=== PATIENT | female | born 1980 | race American Indian/Alaskan Native ===

== ENCOUNTER 2019-11-03 13:48 | Emergency (ER) | payer OTHER ==
[2019-11-03 13:56] VITALS: BP 148/83; PULSE 103; TEMP 99.1; BMI 33.0
--- NOTE | 2019-11-03 13:56 | PDOC ---
Rapid Medical Evaluation Time Seen by Provider: 11/03/19 13:52 Medical Evaluation: Allergies Allergy/AdvReac Type Severity Reaction Status Date / Time No Known Allergies Allergy Verified 05/01/19 10:36 11/03/19 13:53 I have performed a brief in-person evaluation of this patient. CC: sent by PMD for left inguinal mass- r/o abscess. PMHx- NIDDM PE: firm palpable mass present to left inguinal area Orders: deferred Patient to proceed to ED for further evaluation. 11/03/19 13:55 Discharge Disposition - Diagnosis Groin mass in female - Referrals - Patient Instructions - Post Discharge Activity
--- NOTE | 2019-11-03 14:24 | PDOC ---
History of Present Illness - General Chief Complaint: Abscess Boil Stated Complaint: SENT BY PCP Time Seen by Provider: 11/03/19 13:52 - History of Present Illness Initial Comments: 11/03/19 14:55 39 F with hx of prior Csection, DM presented to the ED from her PCP for left groin mass. It happened acutely 2 days ago. Mass was painful, dull in nature, no radiating, no discharge, no other associated symptoms. Denies abdominal pain, F/C/N/V/D, constipation, dysuria, increase frequency. She endorses tylenol help with the pain. She never has this happened to her before. Patient denies IV drug use, hx of STI, other abdominal surgery beside done 15 months ago in [facility]. PSH: PMH: DM SS: denies smoking, alcohol, drug Allergy: none PCP: dr. geller. CELMENCIA GENERAL/CONSTITUTIONAL: No fever or chills. No weakness. HEAD, EYES, EARS, NOSE AND THROAT: No change in vision. No ear pain or discharge. No sore throat. CARDIOVASCULAR: No chest pain or shortness of breath RESPIRATORY: No cough, wheezing, or hemoptysis. GASTROINTESTINAL: No nausea, vomiting, diarrhea or constipation. GENITOURINARY: No dysuria, frequency, or change in urination. +left groin mass/pain. MUSCULOSKELETAL: No joint or muscle swelling or pain. No neck or back pain. SKIN: No rash NEUROLOGIC: No headache, vertigo, loss of consciousness, or change in strength/sensation. ENDOCRINE: No increased thirst. No abnormal weight change HEMATOLOGIC/LYMPHATIC: No anemia, easy bleeding, or history of blood clots. ALLERGIC/IMMUNOLOGIC: No hives or skin allergy. PE: HR 103. GENERAL: Awake, alert, and fully oriented, in no acute distress, HEAD: No signs of trauma, normocephalic, atraumatic EYES: PERRLA, EOMI, sclera anicteric, conjunctiva clear ENT: Auricles normal inspection, hearing grossly normal, nares patent, oropharynx clear without exudates. Moist mucosa NECK: Normal ROM, supple, no lymphadenopathy, JVD, or masses LUNGS: No distress, speaks full sentences, clear to auscultation bilaterally HEART: Regular rate and rhythm, normal S1 and S2, no murmurs, rubs or gallops, peripheral pulses normal and equal bilaterally. ABDOMEN: Soft, nontender, normoactive bowel sounds. No guarding, no rebound. Truncal obesity. : left groin mass, tender, erythema, warm, solid, no fluctulant. Can't reduce back up. EXTREMITIES : Normal inspection, Normal range of motion, no edema. No clubbing or cyanosis. NEUROLOGICAL: Cranial nerves II through XII grossly intact. Normal speech, normal gait, no focal sensorimotor deficits SKIN: Warm, Dry, normal turgor, no rashes or lesions noted 11/03/19 18:36 Past History - Medical History Allergies/Adverse Reactions: Allergies Allergy/AdvReac Type Severity Reaction Status Date / Time No Known Allergies Allergy Verified 11/03/19 13:53 Home Medications: Ambulatory Orders Miscellaneous Medical Supply [Glucometer Device] 1 each TD ASDIR #1 kit 05/01/19 Multivitamin,Therapeutic [Thera] 1 each PO DAILY #30 tablet 09/08/19 Alcohol Antiseptic Pads [Alcohol Prep Pad] 1 each TP BID #1 box 11/03/19 Blood Sugar Diagnostic [Test Strips] 1 each MC BID #1 box 11/03/19 Clindamycin [Cleocin -] 300 mg PO TID #21 capsule 11/03/19 Docusate Sodium [Colace -] 1 - 2 mg PO HS #60 capsule 11/03/19 Lancets 1 each MC BID #1 box 11/03/19 Metformin HCl [Glucophage] 1 tab PO BIDAC #60 tablet 11/03/19 Psyllium [Metamucil (Sugar-Free) -] 1 scoop PO DAILY #1 bottle 11/03/19 Anemia: No Asthma: No Cancer: No Cardiac Disorders: No CVA: No COPD: No CHF: No Dementia: No Diabetes: Yes GI Disorders: No Disorders: No HTN: No Hypercholesterolemia: No Liver Disease: No Seizures: No Thyroid Disease: No - Reproductive History Is Patient Now?: No - Psycho-Social/Smoking History Smoking History: Never smoked - Substance Abuse Hx (Audit-C & DAST Scrn) How often the patient has a drink containing alcohol: Never Score: In Men: 4 or > Positive; In Women: 3 or > Positive: 0 Screen Result (Pos requires Nsg. Audit-10AR): Negative In the last yr the pt used illegal drug/Rx for NonMed reason: No Score: Yes response is considered Positive: 0 Screen Result (Positive result requires Nsg. DAST-10): Negative *Physical Exam - Vital Signs Last Vital Signs Temp Pulse Resp BP Pulse Ox 99.1 F 103 H 20 148/83 100 11/03/19 13:54 11/03/19 13:54 11/03/19 13:54 11/03/19 13:54 11/03/19 13:54 Medical Decision Making - Medical Decision Making 11/03/19 15:02 Plan: Ultrasound: to see if it is abces or bowel. 11/03/19 15:20 Patient wanted to AMA because she has a 15 month old kid. She understands her condition and will promise to return tomorrow morning. Prescription for clindamycin for 7 days is sent. Patient promised to come back tomorrow morning. Discharge - Discharge Information Problems reviewed: Yes Clinical Impression/Diagnosis: Groin mass in female Condition: Good Disposition: AGAINST MEDICAL ADVICE - Additional Discharge Information Prescriptions: Clindamycin [Cleocin -] 300 mg PO TID #21 capsule - Follow up/Referral Referrals: Nini Carpenter, MOTION PICTURE PROJECTIONIST [Primary Care Provider] - - Patient Discharge Instructions Patient Printed Discharge Instructions: DI for Groin Hernia Additional Instructions: AMA It is recommended that you be stayed in the hospital for ultrasound of the mass. The risks of leaving the hospital without complete evaluation for the groin mass is : strangulated hernias, severe infection, severe vomiting, severe pain. These risks have been discussed with your for > 30min. You express understanding of these risks and still desire to leave the hospital against medical advice. Please come back to the ED if you experienced worsening pain, severe nausea, vomiting and if the mass is getting bigger and more painful. We sent you 7 days of antibiotics, already sent to the preferred pharmacy. Please come back tomorrow as we discussed. - Post Discharge Activity
[2019-11-03] MEDS ORDERED: ACETAMINOPHEN 325 MG TABLET (FP) PO ONE (14:46)
--- NOTE | 2019-11-03 15:18 | PDOC ---
Attending Attestation - Resident Resident Name: Pascual Serra - ED Attending Attestation I have performed the following: I have examined & evaluated the patient, The case was reviewed & discussed with the resident, I agree w/resident's findings & plan, Exceptions are as noted - HPI HPI: 11/03/19 15:17 39 past medical history significant for diabetes presents with infection to left groin mass is painful x2 days indurated no drainage no fever no chills no spreading currently breast-feeding [id number] - Physicial Exam PE: 11/03/19 15:17 Vitals: Triage Vital signs reviewed General Appearance: No acute distress, well nourished well developed, Head: Atraumatic, Extremities: Full range of motion to all extremities, no cyanosis, clubbing, or edema Skin: 4 x 4 indurated area of cellulitis to left inguinal crease no fluctuance no drainage likely early abscess not amenable to drainage at this time Psych: Normal mood, normal affect - Medical Decision Making 11/03/19 15:18 Early abscess on examination not amenable to incision and drainage Patient needs to leave the hospital to attend to her [id number], will AMA however patient recommended to start clindamycin perform warm compresses twice a day and to return to emergency department later today or tomorrow when able Findings, the need for follow-up and strict return instructions discussed with patient. Discharge - Discharge Information Problems reviewed: Yes Clinical Impression/Diagnosis: Groin mass in female Condition: Good Disposition: AGAINST MEDICAL ADVICE - Additional Discharge Information Prescriptions: Clindamycin [Cleocin -] 300 mg PO TID #21 capsule - Follow up/Referral Referrals: Nini Carpenter, MOLDING AND TRIM INSTALLER [Primary Care Provider] - - Patient Discharge Instructions Patient Printed Discharge Instructions: DI for Groin Hernia Additional Instructions: AMA It is recommended that you be stayed in the hospital for ultrasound of the mass. The risks of leaving the hospital without complete evaluation for the groin mass is : strangulated hernias, severe infection, severe vomiting, severe pain. These risks have been discussed with your for > 30min. You express understanding of these risks and still desire to leave the hospital against medical advice. Please come back to the ED if you experienced worsening pain, severe nausea, vomiting and if the mass is getting bigger and more painful. We sent you 7 days of antibiotics, already sent to the preferred pharmacy. Please come back tomorrow as we discussed. - Post Discharge Activity
== END 2019-11-03 15:28 | disposition left against medical advice (07) ==
LOC: JER 13:48
DX: R19.07 Generalized intra-abdominal and pelvic swelling, mass and lump (principal)
CPT/HCPCS: 99283-25

== ENCOUNTER 2019-11-05 12:08 | Emergency (ER) | payer OTHER ==
[2019-11-05 12:15] VITALS: BP 133/86; PULSE 99; TEMP 97.8; BMI 15.3
--- NOTE | 2019-11-05 13:35 | PDOC ---
History of Present Illness <EdilsonrinaGabino - Last Filed: 11/05/19 16:21> - General History Source: Patient Exam Limitations: No Limitations <MaribelCarol meadowsecca - Last Filed: 11/05/19 16:48> - General Chief Complaint: Pain Stated Complaint: PAIN Time Seen by Provider: 11/05/19 12:22 Past History <EdilsonrinaGabino - Last Filed: 11/05/19 16:21> - Travel History Traveled outside of the country in the last 30 days: No Close contact w/someone who was outside of country & ill: No - Medical History Anemia: No Asthma: No Cancer: No Cardiac Disorders: No CVA: No COPD: No CHF: No Dementia: No Diabetes: Yes GI Disorders: No Disorders: No HTN: No Hypercholesterolemia: No Liver Disease: No Seizures: No Thyroid Disease: No - Reproductive History Is Patient Now?: No - Immunization History Immunization Up to Date: No - Psycho-Social/Smoking History Smoking History: Never smoked - Substance Abuse Hx (Audit-C & DAST Scrn) How often the patient has a drink containing alcohol: Never Score: In Men: 4 or > Positive; In Women: 3 or > Positive: 0 Screen Result (Pos requires Nsg. Audit-10AR): Negative <MaribeldoriStella - Last Filed: 11/05/19 16:48> - Medical History Allergies/Adverse Reactions: Allergies Allergy/AdvReac Type Severity Reaction Status Date / Time No Known Allergies Allergy Verified 11/03/19 13:53 Home Medications: Ambulatory Orders Metformin HCl [Glucophage] 1 tab PO BIDAC #60 tablet 11/03/19 Review of Systems - Review of Systems Able to Perform ROS?: Yes Comments:: 11/05/19 13:29 CONSTITUTIONAL: Absent: fever, chills, diaphoresis, generalized weakness, malaise, loss of appetite HEENT: Absent: rhinorrhea, nasal congestion, throat pain, throat swelling, difficulty swallowing, mouth swelling, ear pain, eye pain, visual Changes CARDIOVASCULAR: Absent: chest pain, loss of consciousness, palpitations, irregular heart rate, peripheral edema RESPIRATORY: Absent: cough, shortness of breath, dyspnea with exertion, orthopnea, wheezing, stridor, hemoptysis GASTROINTESTINAL: Absent: abdominal pain, abdominal distension, nausea, vomiting, diarrhea, constipation, melena, hematochezia GENITOURINARY: Absent: dysuria, frequency, urgency, hesitancy, hematuria, flank pain, genital pain MUSCULOSKELETAL: Present: L inguinal region pain. Absent: myalgia, arthralgia, joint swelling SKIN: Absent: rash, itching, pallor HEMATOLOGIC/IMMUNOLOGIC: Absent: easy bleeding, easy bruising, lymphadenopathy, frequent infections ENDOCRINE: Absent: unexplained weight gain, unexplained weight loss, heat intolerance, cold intolerance NEUROLOGIC: Absent: headache, focal weakness or paresthesias, dizziness, unsteady gait, seizure, mental status changes, bladder or bowel incontinence PSYCHIATRIC: Absent: anxiety, depression, suicidal or homicidal ideation, hallucinations. Is the patient limited [place]alan proficient: No <Stella Walker - Last Filed: 11/05/19 16:48> *Physical Exam - Vital Signs Last Vital Signs Temp Pulse Resp BP Pulse Ox 97.8 F 99 H 17 133/86 99 11/05/19 12:11 11/05/19 12:11 11/05/19 12:11 11/05/19 12:11 11/05/19 12:11 <Gabino Villareal - Last Filed: 11/05/19 16:21> - Vital Signs Last Vital Signs Temp Pulse Resp BP Pulse Ox 97.8 F 99 H 17 133/86 99 11/05/19 12:11 11/05/19 12:11 11/05/19 12:11 11/05/19 12:11 11/05/19 12:11 - Physical Exam 11/05/19 13:30 GENERAL: Well developed, well nourished. Awake and alert. No acute distress. HEENT: Normocephalic, atraumatic. PERRLA, EOMI. No conjunctival pallor. Sclera are non- icteric. Moist mucous membranes. Oropharynx is clear. NECK: Supple. Full ROM. No JVD. Carotid pulses 2+ and symmetric, without bruits. No thyromegaly. No lymphadenopathy. CARDIOVASCULAR: Regular rate and rhythm. No murmurs, rubs, or gallops. Distal pulses are 2+ and symmetric. PULMONARY: No evidence of respiratory distress. Lungs clear to auscultation bilaterally. No wheezing, rales or rhonchi. ABDOMINAL: Soft. Non-tender. Non-distended. No rebound or guarding. No organomegaly. Normoactive bowel sounds. MUSCULOSKELETAL Normal range of motion at all joints. No bony deformities or tenderness. No CVA tenderness. EXTREMITIES: No cyanosis. No clubbing. No edema. No calf tenderness. SKIN: 4x3cm area of induration and fluctuance to the left inguinal region as well as associated edema. Warm and dry. Normal capillary refill. No rashes. No jaundice. NEUROLOGICAL: Alert, awake, appropriate. Cranial nerves 2-12 intact. No deficits to light touch and temperature in face, upper extremities and lower extremities. No motor deficits in the in face, upper extremities and lower extremities. Normoreflexic in the upper and lower extremities. Normal speech. Toes are down-going bilaterally. Gait is normal without ataxia. PSYCHIATRIC: Cooperative. Good eye contact. Appropriate mood and affect. <Stella Walker - Last Filed: 11/05/19 16:48> Procedures - Incision and Drainage I&D Site: Right: Leg Betadine cleansed: Yes Anesthesia: 1% Lidocaine Volume(ml): 3 Blade Size: 10 Attempts: 1 Plain Packing: No Complications: none Dressing: Yes (4x4 gauze) <Gabino Villareal - Last Filed: 11/05/19 16:21> ED Treatment Course - Medications Given in the ED: ED Medications Discontinued Medications Generic Name Dose Route Start Last Admin Trade Name Freq PRN Reason Stop Dose Admin Lidocaine HCl 10 ml 11/05/19 14:09 11/05/19 14:53 Xylocaine 1% SQ 11/05/19 14:10 10 ml ONCE ONE Administration <Gabino Villareal - Last Filed: 11/05/19 16:21> Medical Decision Making - Medical Decision Making 11/05/19 13: The patient is a 39-year-old female past medical history of [id number] diabetes, presents to the ER for left inguinal pain. She was seen by her PCP and told to come to the ER for drainage of an abscess. She was seen in our ER 2 days ago and had to leave to take care of her child. They had ordered an ultrasound for her at that time to rule out hernia versus abscess. Patient currently complains of intermittent pain to the left groin. She is taking the clindamycin that was prescribed to her at discharge as directed. Denies fevers, chills, dysuria, hematuria, abdominal pain, nausea and vomiting. A/P: Left inguinal pain. On exam patient has a 4 cm x 3 cm fluctuance to the left groin. There is surrounding induration and edema. Pocus skin/soft tissue ordered Likely needs I&D at this time. We will wait for ultrasound and reevaluate. 11/05/19 16:45 Ultrasound shows abscess without bowel I&D performed by Dr. Villareal PGY1, wound culture collected Advised pt to continue abx and follow up in two days for would check Discharge home with return precautions I discussed the physical exam findings, ancillary test results and final diagnoses with the patient. I answered all of the patient's questions. The patient was satisfied with the care received and felt comfortable with the discharge plan and treatment plan. The Patient agrees to follow up with the primary care physician/specialist within 24-72 hours. Return precautions were given. <Stella Walker - Last Filed: 11/05/19 16:48> Discharge <Gabino Villareal - Last Filed: 11/05/19 16:21> - Discharge Information Problems reviewed: Yes - Admission No <Stella Walker - Last Filed: 11/05/19 16:48> - Discharge Information Clinical Impression/Diagnosis: Abscess Condition: Stable Disposition: HOME - Follow up/Referral Referrals: Nini Carpenter QUALITY ASSURANCE SUPERVISOR [Primary Care Provider] - - Patient Discharge Instructions Patient Printed Discharge Instructions: DI for Skin Abscess Additional Instructions: You have an abscess. This is a skin infection. It was drained today. Please continue the clindamycin as directed Please avoid shaving the skin around the area of redness. Do not soak the area, you may shower as normal though. You may take Tylenol as needed for pain. Please return in two days for a wound check. Return to the emergency department if you have worsening redness, fevers, increasing pain, or have any changes in your symptoms. - Post Discharge Activity
[2019-11-05] MEDS ORDERED: LIDOCAINE HCL 1%, 10 MG/ML (50 mL VIAL) SQ ONE (14:09)
[2019-11-05] MEDS ORDERED: LIDOCAINE HCL 1%, 10 MG/ML (20ML VIAL) ONE ×2 (14:12→14:51)
== END 2019-11-05 16:48 | disposition home or self-care (01) ==
LOC: JER 12:08
DX: L02.214 Cutaneous abscess of groin (principal)
CPT/HCPCS: 76999; 87070; 87077; 87205; 99283-25

== ENCOUNTER 2019-11-07 13:47 | Emergency (ER) | payer OTHER ==
[2019-11-07 13:50] VITALS: BP 130/81; PULSE 78; TEMP 97.8; BMI 27.3
--- NOTE | 2019-11-07 14:24 | PDOC ---
Suture Removal/Wound Check HPI - History of Present Illness Chief Complaint: Revisit,Wound Recheck Stated Complaint: WOUND CHECK Time Seen by Provider: 11/07/19 13:50 History Source: Yes: Patient Exam Limitations: Yes: No Limitations Past History - Travel History Traveled outside of the country in the last 30 days: No Close contact w/someone who was outside of country & ill: No - Medical History Allergies/Adverse Reactions: Allergies Allergy/AdvReac Type Severity Reaction Status Date / Time No Known Allergies Allergy Verified 11/07/19 13:59 Home Medications: Ambulatory Orders Metformin HCl [Glucophage] 1 tab PO BIDAC #60 tablet 11/03/19 Anemia: No Asthma: No Cancer: No Cardiac Disorders: No CVA: No COPD: No CHF: No Dementia: No Diabetes: Yes GI Disorders: No Disorders: No HTN: No Hypercholesterolemia: No Liver Disease: No Seizures: No Thyroid Disease: No - Reproductive History Is Patient Now?: No - Immunization History Immunization Up to Date: No - Psycho-Social/Smoking History Smoking History: Never smoked - Substance Abuse Hx (Audit-C & DAST Scrn) How often the patient has a drink containing alcohol: Never Score: In Men: 4 or > Positive; In Women: 3 or > Positive: 0 Screen Result (Pos requires Nsg. Audit-10AR): Negative In the last yr the pt used illegal drug/Rx for NonMed reason: No Score: Yes response is considered Positive: 0 Screen Result (Positive result requires Nsg. DAST-10): Negative Suture Removal/Wound Check PE - Physical Exam Laceration/Wound Check Symptoms: reports: Improved. denies: Fever, Redness, Bleeding, Numbness Current Severity Level: None Maximum Severity Level: None Pain Localization: None Location of Laceration/Wound: left: Leg (Groin, abscess drained, no currently fluctance or induration.) *Review of Systems - Review of Systems Constitutional: No: Chills, Fever, Weakness Integumentary: No: Bruising, Erythema, Rash All Other Systems: Reviewed and Negative *Physical Exam - Vital Signs Last Vital Signs Temp Pulse Resp BP Pulse Ox 97.8 F 78 16 130/81 99 11/07/19 13:48 11/07/19 13:48 11/07/19 13:48 11/07/19 13:48 11/07/19 13:48 Medical Decision Making - Medical Decision Making 11/07/19 14:26 Patient 39-year-old female past medical history of diabetes, presents for wound check of an abscess that was drained 2 days ago in our department urgency department. She states she is taking her in antibiotics as previously directed. States her pain is completely relieved. Denies fevers, chills, drainage from the site. A/P: Need for wound check On exam incision still intact from the left groin however no purulent drainage is expressed, no signs of cellulitis. Induration from last visit has completely resolved. Discharge home with instructions to finish her antibiotics Patient to follow-up with her primary care doctor as needed. I discussed the physical exam findings, ancillary test results and final diagnoses with the patient. I answered all of the patient's questions. The patient was satisfied with the care received and felt comfortable with the discharge plan and treatment plan. The Patient agrees to follow up with the primary care physician/specialist within 24-72 hours. Return precautions were given. Discharge - Discharge Information Problems reviewed: Yes Clinical Impression/Diagnosis: Visit for wound check Condition: Stable Disposition: HOME - Admission No - Follow up/Referral Referrals: Nini Carpenter NP [Primary Care Provider] - - Patient Discharge Instructions Patient Printed Discharge Instructions: DI for Incision and Drainage of a Skin Abscess Additional Instructions: Your abscess has healed. Please continue taking the clindamycin as previously directed until you finish the bottle. Avoid shaving in the area. Follow-up with your primary care doctor as needed. Return to the ER for pain over the area, new fluctuance, or if you have any changes in her symptoms. - Post Discharge Activity
== END 2019-11-07 14:29 | disposition home or self-care (01) ==
LOC: JERFT 13:47 → JER 13:47 → JERFT 14:29
DX: Z48.00 Encounter for change or removal of nonsurgical wound dressing (principal)
CPT/HCPCS: 99281-25